=== PATIENT | female | born 1965 | race Caucasian/White ===

== ENCOUNTER 2023-12-16 07:50 | Emergency (ER) | payer MEDICARE, SELFPAY ==
[2023-12-16] VITALS (11 sets, daily range): BP systolic 147; BP diastolic 95; PULSE 81; RESP 16; TEMP 36.5; O2SAT 97–99; BMI 33.2
--- NOTE | 2023-12-16 08:03 | CTR_ITS ---
PROCEDURE INFORMATION: Exam: CT Abdomen And Pelvis With Contrast Exam date and time: 12/16/2023 8:30 AM Age: 58 years old Clinical indication: Abdominal pain; Localized; Upper; Additional info: Abd pain TECHNIQUE: Imaging protocol: Computed tomography of the abdomen and pelvis with contrast. Radiation optimization: All CT scans at this facility use at least one of these dose optimization techniques: automated exposure control; mA and/or kV adjustment per patient size (includes targeted exams where dose is matched to clinical indication); or iterative reconstruction. Contrast material: OMNI 350; Contrast volume: 100 ml; Contrast route: INTRAVENOUS (IV); COMPARISON: No relevant prior studies available. RADIATION DOSE METRICS: Total DLP (mGy-cm): 994.33 FINDINGS: Lungs: There is atelectasis and/or infiltrate in the left lower lobe and mild atelectasis in the right lower lobe. Diaphragm: There is a small hiatal hernia. Liver: Normal. No mass. Gallbladder and bile ducts: Normal. No calcified stones. No ductal dilation. Pancreas: Normal. No ductal dilation. The inflammatory process described below involving the duodenum is adjacent to the pancreas but I do not believe that the inflammatory process is centered in the pancreas. Spleen: There are splenic granulomata present. The spleen is otherwise unremarkable. Adrenal glands: Normal. No mass. Kidneys and ureters: Normal. No hydronephrosis. Stomach and bowel: There is definite wall thickening and edema involving the 2nd and 3rd portions of the duodenum. There is adjacent stranding extending into the mesentery and there is mesenteric adenopathy. Findings suggest an inflammatory process such as duodenitis/enteritis. Neoplasm can not completely be excluded here and follow-up is recommended to ensure complete resolution. There is no wall thickening involving the stomach and there is no wall thickening involving other small or large bowel loops. There is colonic diverticulosis without CT evidence for active diverticulitis Appendix: The appendix is normal. Intraperitoneal space: See above.. No free air. No significant fluid collection. Vasculature: Unremarkable. No abdominal aortic aneurysm. Lymph nodes: There are calcified mediastinal and hilar lymph nodes. There are calcified granulomata in the left lung base. There is a noncalcified nodule in the right lower lobe measuring 5 mm on series 3, image 9. There are 2 additional 2-3 mm nodules in the right middle lobe that are not clearly calcified seen on images 9 and 10 and another seen in the right lower lobe on image 21 and yet another on image 25 Urinary bladder: The bladder is unremarkable. Reproductive: Patient has undergone previous tubal ligation. Uterus and adnexa are otherwise unremarkable. Bones/joints: There are degenerative changes in the symphysis, hips, sacroiliac joints and spine Soft tissues: There is a small umbilical hernia containing only fat. CT/CT abdomen pelvis w con* [id number] IMPRESSION: 1. Definite wall thickening/edema involving the 2nd and 3rd portions of the duodenum with fat stranding extending into the mesentery and mesenteric adenopathy. Findings suggest an inflammatory process such as duodenitis or focal enteritis. Neoplasm can not be excluded and follow-up to ensure complete resolution is recommended. There is no free air or organized abscess. This process is adjacent to and may secondarily involve the pancreas but I do not believe it originated in the pancreas. 2. Normal appendix 3. Colonic diverticulosis without CT evidence for active diverticulitis 4. Evidence for prior granulomatous disease. Noncalcified pulmonary nodules as described above. Recommend formal chest CT to determine if there are additional nodules and serve as baseline for follow-up per Fleischner society.
--- NOTE | 2023-12-16 08:04 | W.ED.ABDPA2 ---
HPI - Abdominal Pain General: Chief Complaint: Abdominal Pain Stated Complaint: abd pain, N Time Seen by Provider: 12/16/23 07:53 Source: patient Mode of arrival: ambulatory Limitations: no limitations History of Present Illness: 58-year-old female who states that since Sunday she has been having some diffuse abdominal pain really mid abdomen and epigastric. States seems to be worse with eating and drinking rates the pain a 3 out of 10 currently states she feels like she needs to burp she has had nausea she denies any vomiting. She denies diarrhea denies any fever. Associated Symptoms: Denies chills, diarrhea, fever(s), nausea and vomiting Review of Systems Const: Denies: fever(s), chills, body aches or change in appetite ENMT: Denies: throat pain or dental pain Card: Denies: chest pain Resp: Denies: dyspnea GI: Reports: abdominal pain; Denies: nausea, vomiting or diarrhea Musc: Denies: neck pain or back pain Skin/Breast: Denies: rash Neuro: Denies: headache(s) Physical Exam Const: COMMON NORMALS: no acute distress, patient oriented x3 and healthy appearing HENMT: COMMON NORMALS: normocephalic and atraumatic HEAD & SCALP: normocephalic and atraumatic Neck/C-Spine: COMMON NORMALS: full ROM and supple Chest: COMMONS NORMALS: normal inspection of the chest Resp: COMMON NORMALS: normal respiratory effort, No retractions, No use of accessory muscles and clear to auscultation bilaterally AUSCULTATION: clear to auscultation bilaterally Cardio: COMMON NORMALS: regular rate, regular rhythm and No murmurs present (Cardio) RATE: regular rate RHYTHM: regular rhythm GI: COMMON NORMALS: Normal to inspection, nondistended, normoactive bowel sounds present, Soft to palpation and no masses PALPATION: Yes Soft to palpation OTHER: mild epigastric tenderness Extremity: COMMON NORMALS: normal to inspection and full ROM Neuro: COMMON NORMALS: patient oriented x3, moves all extremities and no focal motor deficits Psych: COMMON NORMALS: mental status grossly normal, Normal thought process present and cooperative THOUGHT PROCESS: Normal thought process present Skin: COMMON NORMALS: no rashes or lesions noted and no wounds GENERAL SKIN EXAM: no rashes or lesions noted Course Vital Signs: Vital signs: Vital Signs Temperature 97.7 F 12/16/23 08:00 Pulse Rate 81 12/16/23 08:00 Respiratory Rate 16 12/16/23 08:00 Blood Pressure 147/95 12/16/23 08:00 Pulse Oximetry 97 12/16/23 08:00 Oxygen Delivery Me thod Room Air 12/16/23 08:00 MDM - Abdominal Pain Medical Decision Making Patient presents with epigastric abdominal pain CT does show an enteritis or duodenitis we will start her on clarithromycin and Flagyl along with sulcal fate and Protonix. Will get her follow-up with surgeon she likely needs an endoscope. Abdominal exam here is benign she is to return if worsening she understands agrees to plan. Medical Records I reviewed the patient's medical records. Lab Data I reviewed the patient's lab results. 12/16/23 08:09 12/16/23 08:09 Labs/Radiology: Radiology Impressions Abdomen/Pelvis CT 12/16/23 08:03 IMPRESSION: 1. Definite wall thickening/edema involving the 2nd and 3rd portions of the duodenum with fat stranding extending into the mesentery and mesenteric adenopathy. Findings suggest an inflammatory process such as duodenitis or focal enteritis. Neoplasm can not be excluded and follow-up to ensure complete resolution is recommended. There is no free air or organized abscess. This process is adjacent to and may secondarily involve the pancreas but I do not believe it originated in the pancreas. 2. Normal appendix 3. Colonic diverticulosis without CT evidence for active diverticulitis 4. Evidence for prior granulomatous disease. Noncalcified pulmonary nodules as described above. Recommend formal chest CT to determine if there are additional nodules and serve as baseline for follow-up per Fleischner society. Laboratory Results WBC 11.84 10^3/uL (3.29-11.43) H 12/16/23 08:09 RBC 4.76 10^6/uL (3.85-5.65) 12/16/23 08:09 Hgb 13.20 g/dL (11.27-16.99) 12/16/23 08:09 Hct 39.6 % (36-47) 12/16/23 08:09 MCV 83.2 fl (85-98) L 12/16/23 08:09 MCH 27.7 pg (27-33) 12/16/23 08:09 MCHC 33.3 g/dL (30-55) 12/16/23 08:09 RDW 13.6 % (12.1-15.1) 12/16/23 08:09 Plt Count 319 10^3/cmm (157-399) 12/16/23 08:09 MPV 9.7 fL (7.4-10.4) 12/16/23 08:09 Neut % (Auto) 61.6 % 12/16/23 08:09 Lymph % (Auto) 28.0 % 12/16/23 08:09 Davidson % (Auto) 7.9 % 12/16/23 08:09 Eos % (Auto) 1.4 % 12/16/23 08:09 Baso % (Auto) 0.8 % 12/16/23 08:09 Neut # (Auto) 7.28 10^3/uL (1.8-7.7) 12/16/23 08:09 Lymph # (Auto) 3.3 10^3/uL (0.8-4.8) 12/16/23 08:09 Davidson # (Auto) 0.9 10^3/uL (0.2-0.9) 12/16/23 08:09 Eos # (Auto) 0.2 10^3/uL (0.0-0.8) 12/16/23 08:09 Baso # (Auto) 0.1 10^3/uL (0.0-0.1) 12/16/23 08:09 Nucleated RBC % (auto) 0 % 12/16/23 08:09 Nucleated RBCs # 0.0 /100WBC 12/16/23 08:09 Sodium 139 mmol/L (136-145) 12/16/23 08:09 Potassium 4.1 mmol/L (3.5-5.1) 12/16/23 08:09 Chloride 102 mmol/L (98-107) 12/16/23 08:09 Carbon Dioxide 25 mmol/L (22-29) 12/16/23 08:09 Anion Gap 16.1 (5-19) 12/16/23 08:09 BUN 11 mg/dL (6-20) 12/16/23 08:09 Creatinine 0.9 mg/dL (0.5-0.9) 12/16/23 08:09 GFR Calculation 64.1 mL/min (90-130) L 12/16/23 08:09 Glucose 132 mg/dL (65-115) H 12/16/23 08:09 Calculated Osmolality 289 mOsm/kg (285-295) 12/16/23 08:09 Calcium 9.4 mg/dL (8.5-10.5) 12/16/23 08:09 Total Bilirubin 0.3 mg/dL (0.15-1.2) 12/16/23 08:09 AST 13 U/L (0-32) 12/16/23 08:09 ALT 10 U/L (0-33) 12/16/23 08:09 Alkaline Phosphatase 76 U/L (35-105) 12/16/23 08:09 Total Protein 8.0 g/dL (6.6-8.7) 12/16/23 08:09 Albumin 3.9 g/dL (3.5-5.2) 12/16/23 08:09 Globulin 4.1 g/dL (1.3-4.6) 12/16/23 08:09 Lipase 39 U/L (13-60) 12/16/23 08:09 All radiology interpretation(s) finalized by discharge Discharge Plan Discharge Patient Disposition: Home Clinical Impression: Abdominal pain, Duodenitis Condition: Stable Prescriptions: New pantoprazole [Protonix] 40 mg tablet,delayed release (DR/EC) 40 mg PO BID Qty: 60 0RF sucralfate 1 gram tablet 1 g PO BID 84 Days Qty: 168 0RF clarithromycin 500 mg tablet 500 mg PO BID 7 Days Qty: 14 0RF metronidazole 500 mg tablet 500 mg PO Q8H 7 Days Qty: 21 0RF Discharge Orders: Discharge ED (Routine); Ordered 12/16/23 Ordered By: Monique Gu Referrals: Iván Pierce MD [Physician] - 1-3 days Discharge Diet: Advance as tolerated Discharge Activity: Resume usual activity Patient Instructions: Abdominal Pain (ED), Duodenitis (ED) Coding Level of Care Code ED [employer] Teacher for Isidoro Pierre
[2023-12-16] MEDS: sodium chloride 0.9% 1,000 ML 999 ML IV (08:12)
[2023-12-16 08:13] LABS: Basophils # 0.1 10^3/uL (0.0-0.1); Basophils % 0.8 %; Eosinophils # 0.2 10^3/uL (0.0-0.8); Eosinophils % 1.4 %; Hematocrit 39.6 % (36-47); Lymphocytes # 3.3 10^3/uL (0.8-4.8); Mean Corpuscular HGB Conc 33.3 g/dL (30-55); Mean Corpuscular Hemoglobin 27.7 pg (27-33); Mean Corpuscular Volume 83.2 fl (85-98); Mean Platelet Volume 9.7 fL (7.4-10.4); Monocytes # 0.9 10^3/uL (0.2-0.9); Monocytes % 7.9 %; Neutrophils # 7.28 10^3/uL (1.8-7.7); Neutrophils % 61.6 %; Nucleated Red Blood Cells % 0 %; Platelet Count 319 10^3/cmm (157-399); Red Blood Count 4.76 10^6/uL (3.85-5.65); Red Cell Distribution Width 13.6 % (12.1-15.1); White Blood Count 11.84 10^3/uL (3.29-11.43)
[2023-12-16] MEDS: ondansetron 2 mg/ML SDV 2 mL 4 MG IVP (08:13)
[2023-12-16] MEDS: lidocaine 2% viscous 15 ML, aluminum-mag hydrox-simethicon 30 ML, sucralfate oral liq 1 GM PO (08:17)
[2023-12-16 08:30] LABS: Alanine Aminotransferase 10 U/L (0-33); Albumin Level 3.9 g/dL (3.5-5.2); Alkaline Phosphatase 76 U/L (35-105); Anion Gap 16.1 (5-19); Aspartate Amino Transferase 13 U/L (0-32); Blood Urea Nitrogen 11 mg/dL (6-20); Calcium 9.4 mg/dL (8.5-10.5); Carbon Dioxide 25 mmol/L (22-29); Chloride 102 mmol/L (98-107); Globulin 4.1 g/dL (1.3-4.6); Glomerular Filtration Rate 64.1 mL/min (90-130); Glucose 132 mg/dL (65-115); Lipase 39 U/L (13-60); Osmolality Calculated 289 mOsm/kg (285-295); Potassium 4.1 mmol/L (3.5-5.1); Sodium 139 mmol/L (136-145); Total Bilirubin 0.3 mg/dL (0.15-1.2)
[2023-12-16] MEDS: iohexol 350 mg/mL 500 mL Btl (per mL) IV (08:40)
--- NOTE | 2023-12-17 08:18 | DCPLANNER ---
Message was sent to general surgery on 12/17/23 at 0818. Clinic to contact patient.
== END 2023-12-16 09:26 | disposition home or self-care (01) ==
PROVIDERS: Emergency Provider Emergency Medicine
DX: K29.80 Duodenitis without bleeding (principal)
CPT/HCPCS: 74177; 80053; 83690; 85025; 96374; 99285; J2405; J7030; Q9967

== ENCOUNTER 2023-12-21 10:28 | Emergency (ER) | payer MEDICARE, SELFPAY ==
[2023-12-21 10:52] VITALS: BP 115/80; PULSE 82; RESP 14; TEMP 36.8; O2SAT 97
[2023-12-21 11:13] VITALS: BP 141/99; PULSE 80; RESP 18; TEMP 36.8; O2SAT 100
--- NOTE | 2023-12-21 11:13 | ECG_ITS ---
[facility] Test Date: 2023-12-21 Pat Name: Bel De Jesus Department: Room: Gender: Female Participant Administrator: : 1965 Requested By: Gela Pierce Order Number: [id number] Edwards MD: Thuan Powell M.D. Measurements Intervals [place] Rate: 72 P: 64 NC: 163 QRS: 50 QRSD: 86 T: 50 QT: 386 QTc: 422 Interpretive Statements SINUS RHYTHM No previous ECG available for comparison Electronically Signed On 12-22-2023 5:58:01 SIGNAL WORKER by Thuan Powell M.D. [id number]
--- NOTE | 2023-12-21 11:14 | ED_ITS ---
HPI - Allergic Reaction 2 General: Chief complaint: Allergic Reaction Stated complaint: Right & left leg pain Time Seen by Provider: 12/21/23 11:10 History of Present Illness: HPI narrative: 58-year-old female who presents to the e [facility] room with a rash on her legs and pedal edema. She was seen here 3 to 4 days back and had a CT of her abdomen done which showed some duodenitis. She had been having abdominal pain. She was started on omeprazole, clarithromycin, Flagyl and Carafate. She is concerned she may be having a reaction to this. Abdominal pain has been improved. No shortness of breath. No feeling of her throat closing. No chest pain. No nausea or vomiting. Review of Systems 2 Narrative: Constitutional symptoms: Negative except as documented in HPI. Skin symptoms: Negative except as documented in HPI. Eye symptoms: Negative except as documented in HPI. ENMT symptoms: Negative except as documented in HPI. Respiratory symptoms: Negative except as documented in HPI. Cardiovascular symptoms: Negative except as documented in HPI. Gastrointestinal symptoms: Negative except as documented in HPI. Genitourinary symptoms: Negative except as documented in HPI. Musculoskeletal symptoms: Negative except as documented in HPI. Neurologic symptoms: Negative except as documented in HPI. Psychiatric symptoms: Negative except as documented in HPI. Endocrine symptoms: Negative except as documented in HPI. Physical Exam 2 Narrative: EXAM NARRATIVE: General: Alert, no acute distress. Skin: Warm, dry. Rash on legs. 1 to 1.5 cm round lesions. Raised. Erythematous. Head: Normocephalic, atraumatic. Neck: Supple, trachea midline. Eye: Extraocular movements are intact. Ears, nose, mouth and throat: mucosa moist. Cardiovascular: Regular, Normal peripheral perfusion. Patient does have some pedal edema. Respiratory: Lungs are clear to auscultation, respirations are non-labored, breath sounds are equal, Symmetrical chest wall expansion. Gastrointestinal: Soft, Nontender, Non distended, Normal bowel sounds. Musculoskeletal: Normal ROM, no deformity. Neurological: Alert and oriented to person, place, time, and situation, No focal neurological deficit observed. Psychiatric: Cooperative, appropriate mood & affect. Course 2 Vital Signs: Vital signs: Vital Signs Temperature 98.2 F 12/21/23 11:13 Pulse Rate 80 12/21/23 11:13 Respiratory Rate 18 12/21/23 11:13 Blood Pressure 141/99 12/21/23 11:13 Pulse Oximetry 100 12/21/23 11:13 Oxygen Delivery Me thod Room Air 12/21/23 11:13 MDM - Allergic Reaction Medical Decision Making Medical decision making: Differential diagnosis including but not limited to: This could be just an allergic reaction to one of her medications. However will rule out heart failure with troponin and a proBNP. And a chest x-ray. Urinalysis to rule out nephrotic syndrome which might cause edema and a rash. Basic lab work. Chest x-ray: No acute process. No pneumothorax. No infiltrate. No cardiomegaly. This was reviewed and interpreted by myself the ER physician. EKG: Time 11:37 AM rate 72 normal sinus rhythm, No ST-T changes, no ectopy, normal SC & QRS intervals, This was reviewed and interpreted by myself the ER physician. Lab work is unremarkable. No leukocytosis. No renal failure. Urinalysis is normal. Lab Data 12/21/23 11:45 12/21/23 11:45 Laboratory Results WBC 9.06 10^3/uL (3.29-11.43) 12/21/23 11:45 RBC 4.21 10^6/uL (3.85-5.65) 12/21/23 11:45 Hgb 11.50 g/dL (11.27-16.99) 12/21/23 11:45 Hct 36.4 % (36-47) 12/21/23 11:45 MCV 86.5 fl (85-98) 12/21/23 11:45 MCH 27.3 pg (27-33) 12/21/23 11:45 MCHC 31.6 g/dL (30-55) 12/21/23 11:45 RDW 14.1 % (12.1-15.1) 12/21/23 11:45 Plt Count 350 10^3/cmm (157-399) 12/21/23 11:45 MPV 9.4 fL (7.4-10.4) 12/21/23 11:45 Neut % (Auto) 55.9 % 12/21/23 11:45 Lymph % (Auto) 33.2 % 12/21/23 11:45 Martin % (Auto) 7.7 % 12/21/23 11:45 Eos % (Auto) 2.0 % 12/21/23 11:45 Baso % (Auto) 0.9 % 12/21/23 11:45 Neut # (Auto) 5.06 10^3/uL (1.8-7.7) 12/21/23 11:45 Lymph # (Auto) 3.0 10^3/uL (0.8-4.8) 12/21/23 11:45 Martin # (Auto) 0.7 10^3/uL (0.2-0.9) 12/21/23 11:45 Eos # (Auto) 0.2 10^3/uL (0.0-0.8) 12/21/23 11:45 Baso # (Auto) 0.1 10^3/uL (0.0-0.1) 12/21/23 11:45 Nucleated RBC % (auto) 0 % 12/21/23 11:45 Nucleated RBCs # 0.0 /100WBC 12/21/23 11:45 Sodium 140 mmol/L (136-145) 12/21/23 11:45 Potassium 3.8 mmol/L (3.5-5.1) 12/21/23 11:45 Chloride 103 mmol/L (98-107) 12/21/23 11:45 Carbon Dioxide 26 mmol/L (22-29) 12/21/23 11:45 Anion Gap 14.8 (5-19) 12/21/23 11:45 BUN 15 mg/dL (6-20) 12/21/23 11:45 Creatinine 0.9 mg/dL (0.5-0.9) 12/21/23 11:45 GFR Calculation 64.1 mL/min (90-130) L 12/21/23 11:45 Glucose 94 mg/dL (65-115) 12/21/23 11:45 Calculated Osmolality 291 mOsm/kg (285-295) 12/21/23 11:45 Calcium 8.6 mg/dL (8.5-10.5) 12/21/23 11:45 Total Bilirubin 0.2 mg/dL (0.15-1.2) 12/21/23 11:45 AST 23 U/L (0-32) 12/21/23 11:45 ALT 17 U/L (0-33) 12/21/23 11:45 Alkaline Phosphatase 73 U/L (35-105) 12/21/23 11:45 Troponin T Baseline < 6 ng/L (0-10) 12/21/23 11:45 C-Reactive Protein 12.3 mg/L (0.0-4.9) H 12/21/23 11:45 NT-Pro-B Natriuret Pep 322 pg/mL (0-125) H 12/21/23 11:45 Total Protein 6.8 g/dL (6.6-8.7) 12/21/23 11:45 Albumin 3.7 g/dL (3.5-5.2) 12/21/23 11:45 Globulin 3.1 g/dL (1.3-4.6) 12/21/23 11:45 Urine Color Yellow (Yellow) 12/21/23 13:16 Urine Appearance Clear (CLEAR) 12/21/23 13:16 Urine pH 5 (5-7) 12/21/23 13:16 Ur Specific Stover 1.010 (1.005-1.030) 12/21/23 13:16 Urine Protein Neg (Negative) 12/21/23 13:16 Urine Glucose (UA) Norm (Normal) 12/21/23 13:16 Urine Ketones Negative (Negative) 12/21/23 13:16 Urine Blood 2+ (Negative) H 12/21/23 13:16 Urine Nitrate Negative (Negative) 12/21/23 13:16 Urine Bilirubin Neg (Negative) 12/21/23 13:16 Urine Urobilinogen Norm mg/dL (Negative) 12/21/23 13:16 Ur Leukocyte Esterase Trace (Negative) H 12/21/23 13:16 Urine RBC 5-10 /hpf (0-2) H 12/21/23 13:16 Urine WBC 0-4 /hpf (0-5) H 12/21/23 13:16 Ur Squamous Epith Cells 0-4 /hpf (0-5) H 12/21/23 13:16 Ur Transition Epith Cell 0-4 /hpf 12/21/23 13:16 Amorphous Sediment Not Reportable 12/21/23 13:16 Urine Bacteria Trace /hpf (NONE) 12/21/23 13:16 Coronavirus 229E (PCR) Not detected (NOT DETECT) 12/21/23 11:38 Influenza Type A Ag negative (Negative) 12/21/23 11:38 Influenza Type B Ag negative (Negative) 12/21/23 11:38 SARS-CoV-2 (PCR) Not detected (NOT DETECT) 12/21/23 11:38 All radiology interpretation(s) finalized by discharge Discharge Plan Discharge Patient Disposition: Home Clinical Impression: Urticaria Condition: Stable Prescriptions: New prednisone 20 mg tablet 60 mg PO DAILY 5 Days Qty: 15 0RF amoxicillin-pot clavulanate 875-125 mg tablet 1 tab PO BID 10 Days Qty: 20 0RF No Action simvastatin 40 mg tablet 40 mg PO QPM levothyroxine 88 mcg tablet 88 mcg PO DAILY montelukast 10 mg tablet 10 mg PO QPM NAC 600 mg Capsule 600 mg PO DAILY pantoprazole [Protonix] 40 mg tablet,delayed release (DR/EC) 40 mg PO BID Qty: 60 0RF sucralfate 1 gram tablet 1 g PO BID 84 Days Qty: 168 0RF clarithromycin 500 mg tablet 500 mg PO BID 7 Days Qty: 14 0RF metronidazole 500 mg tablet 500 mg PO Q8H 7 Days Qty: 21 0RF Discharge Orders: Discharge ED (Routine); Ordered 12/21/23 Ordered By: Gela Simmons Referrals: Lana Botello PA-C [Primary Care Provider] - (Discontinue clarithromycin and metronidazole. Continue Carafate and PPI. You have been screened and evaluated and felt safe for discharge. Health conditions do change or evolve sometimes and as such it is important that you follow up with your Primary Doctor to be re checked, 3-5 days is a general good time frame for follow up. You are always welcome to return to the ED for re assessment if your symptoms are worsening or you have new concerns) Discharge Diet: Advance as tolerated Discharge Activity: Resume usual activity Patient Instructions: Opioid Safety, Pain Management, Allergic Reaction Coding Level of Care Code ED Director Operations for Isidoro Pierre
--- NOTE | 2023-12-21 11:20 | XR_ITS ---
WS: [id number] XR chest 1V [id number] REASON FOR EXAM: edema FINDINGS: The heart and the mediastinum are within normal limits. Calcified granulomatous disease in both hemithoraces. No acute or subacute pulmonary parenchymal or pleural abnormality is identified. Eventration of the right hemidiaphragm. Mild degenerative spondylosis and scoliosis of the mid and lower thoracic spine. IMPRESSION: No acute chest abnormality.
[2023-12-21 11:54] LABS: Basophils # 0.1 10^3/uL (0.0-0.1); Basophils % 0.9 %; Eosinophils # 0.2 10^3/uL (0.0-0.8); Hematocrit 36.4 % (36-47); Lymphocytes % 33.2 %; Mean Corpuscular HGB Conc 31.6 g/dL (30-55); Mean Corpuscular Hemoglobin 27.3 pg (27-33); Mean Corpuscular Volume 86.5 fl (85-98); Mean Platelet Volume 9.4 fL (7.4-10.4); Monocytes # 0.7 10^3/uL (0.2-0.9); Monocytes % 7.7 %; Neutrophils # 5.06 10^3/uL (1.8-7.7); Neutrophils % 55.9 %; Nucleated Red Blood Cells % 0 %; Platelet Count 350 10^3/cmm (157-399); Red Blood Count 4.21 10^6/uL (3.85-5.65); Red Cell Distribution Width 14.1 % (12.1-15.1); White Blood Count 9.06 10^3/uL (3.29-11.43)
[2023-12-21 12:02] LABS: Influenza A by IFA negative (Negative); Influenza B by IFA negative (Negative)
[2023-12-21 12:14] LABS: Troponin(5th) Baseline < 6 ng/L (0-10)
[2023-12-21 12:25] LABS: Alanine Aminotransferase 17 U/L (0-33); Albumin Level 3.7 g/dL (3.5-5.2); Alkaline Phosphatase 73 U/L (35-105); Anion Gap 14.8 (5-19); Aspartate Amino Transferase 23 U/L (0-32); Blood Urea Nitrogen 15 mg/dL (6-20); C Reactive Protein 12.3 mg/L (0.0-4.9); Calcium 8.6 mg/dL (8.5-10.5); Carbon Dioxide 26 mmol/L (22-29); Chloride 103 mmol/L (98-107); Globulin 3.1 g/dL (1.3-4.6); Glomerular Filtration Rate 64.1 mL/min (90-130); Glucose 94 mg/dL (65-115); NT Pro B Type Natriuretic Pept 322 pg/mL (0-125); Osmolality Calculated 291 mOsm/kg (285-295); Potassium 3.8 mmol/L (3.5-5.1); Sodium 140 mmol/L (136-145); Total Bilirubin 0.2 mg/dL (0.15-1.2); Total Protein 6.8 g/dL (6.6-8.7)
[2023-12-21 13:29] LABS: Adenovirus Not Detected (NOT DETECT); Chlamydia Pneumoniae Not Detected (NOT DETECT); Coronavirus 229E,HKU1,NL63,OC4 Not Detected (NOT DETECT); Human Metapneumovirus Not Detected (NOT DETECT); Human Rhinovirus/Enterovirus Not Detected (NOT DETECT); Influenza A Not Detected (NOT DETECT); Influenza A H1 Not Detected (NOT DETECT); Influenza A H1-2009 Not Detected (NOT DETECT); Influenza A H3 Not Detected (NOT DETECT); Influenza B Not Detected (NOT DETECT); Mycoplasma Pneumoniae Not Detected (NOT DETECT); Parainfluenza Virus Type 1 Not Detected (NOT DETECT); Parainfluenza Virus Type 2 Not Detected (NOT DETECT); Parainfluenza Virus Type 3 Not Detected (NOT DETECT); Parainfluenza Virus Type 4 Not Detected (NOT DETECT); Respiratory Syncytial Virus A Not Detected (NOT DETECT); Respiratory Syncytial Virus B Not Detected (NOT DETECT); SARS-COV-2 Not Detected (NOT DETECT)
[2023-12-21 14:05] LABS: Add Urine Culture? No; Bacteria Urine TRACE /hpf; Bilirubin Urine Neg (Negative); Blood Urine 2+ (Negative); Glucose Urine UA Norm (Normal); Ketones Urine Negative (Negative); Leukocyte Esterase Urine Trace (Negative); Nitrate Urine Negative (Negative); Protein Urine Neg (Negative); Squamous Epithelial Cell Urine 0-4 /hpf (0-5); Transitional Epi Cells Urine 0-4 /hpf; Urine Appearance Clear (CLEAR); Urine Color Yellow (Yellow); Urobilinogen Urine Norm (Negative); WBC Urine 0-4 /hpf (0-5); pH Urine 5 (5-7)
== END 2023-12-21 14:41 | disposition home or self-care (01) ==
PROVIDERS: Emergency Provider Emergency Medicine; PCP Physician Assistant
DX: L50.9 Urticaria, unspecified (principal); Z11.52 Encounter for screening for COVID-19
CPT/HCPCS: 36415; 71045; 80053; 81001; 83880; 84484; 85025; 86140; 87635; 87804; 93005; 99285

== ENCOUNTER → 2024-01-03 11:57 | Outpatient (BNVA) | payer MEDICARE, SELFPAY | PROVIDERS: PCP Physician Assistant; Referring Provider Surgery; Visit Provider Surgery | DX: R10.9 Unspecified abdominal pain (principal) | CPT/HCPCS: 83630 ==

== ENCOUNTER 2024-01-04 10:48 | Outpatient (CLI) | payer MEDICARE, SELFPAY ==
--- NOTE | 2024-01-04 10:50 | MM_ITS ---
WS: [id number] BILATERAL 3D TOMOSYNTHESIS DIGITAL SCREENING MAMMOGRAM WITH CAD CLINICAL INFORMATION: SCREENING HISTORY: Screening mammogram. No current complaints. COMPARISON: None. TECHNIQUE: Bilateral CC and MLO views. FINDINGS: Fatty-replaced breasts bilaterally. No suspicious focal mass, asymmetry, calcifications, or ibm bpm architect ural distortion. No evidence of malignancy. IMPRESSION: MM/[place] [id number] BI-RADS: 1-Negative FOLLOW UP: 1 Year Follow-up Recommend return to annual screening mammography.
== END 2024-01-04 10:49 | disposition home or self-care (01) ==
LOC: RAD 10:49
PROVIDERS: PCP Physician Assistant; Visit Provider Physician Assistant
DX: Z12.39 Encounter for other screening for malignant neoplasm of breast (principal); R92.313 Mammographic fatty tissue density, bilateral breasts
CPT/HCPCS: 77063; 77067; 99204

== ENCOUNTER 2024-01-30 08:28 | Day surgery (SDC) | payer MEDICARE, SELFPAY ==
--- NOTE | 2024-01-30 08:48 | W.PM.OPSFHP ---
Same Day Surgery H&P Indication for Procedure/HPI DATE OF PROCEDURE: January 30, 2024 CHIEF COMPLAINT/INDICATIONFOR SURGICAL PROCEDURE: history of duodenitis PREOP DIAGNOSIS: history of duodenitis PLANNED PROCEDURE: Operation Date: 01/30/24 09:25 Proposed Procedures p 34982 egd : K29.80(Not Applicable) - Iván Pierce MD Medications/Allergies* Home Medications Medication Instructions Recorded Confirmed Type acetylcysteine 600 mg capsule (NAC) 600 mg PO DAILY 12/21/23 01/28/24 History levothyroxine 88 mcg tablet 88 mcg PO DAILY 12/21/23 01/28/24 History montelukast 10 mg tablet 10 mg PO QPM 12/21/23 01/28/24 History simvastatin 40 mg tablet 40 mg PO QPM 12/21/23 01/28/24 History budesonide-formoterol HFA 80 2 puff inhalation BID 01/28/24 01/28/24 History mcg-4.5 mcg/actuation aerosol inhaler (Symbicort) Allergies/Adverse Reactions Allergy/AdvReac Type Severity Reaction Status Date / Time clarithromycin Allergy ALGY-Rash Verified 01/28/24 09:26 metronidazole Allergy ALGY-Rash Verified 01/28/24 09:26 Pertinent Exam Findings alert, oriented x 3, clear to auscultation bilaterally and regular rate & rhythm Recommendations Surgery/Procedure today Coding Level of Care Code Acute Code for Chg Fwd
[2024-01-30 08:55] VITALS: BP 130/87; PULSE 77; RESP 18; TEMP 36.3; O2SAT 99; BMI 33.2
[2024-01-30] MEDS: sodium chloride 0.9% 1,000 ML 30 ML IV (08:57)
--- NOTE | 2024-01-30 09:29 | ANES.PREANE2 ---
Pre-Anesthetic Assessment Height/Weight: Height 1.75 m Weight 102.058 kg Temp Pulse Resp BP Pulse Ox O2 Del Method 97.3 F L 77 18 130/87 99 Room Air 01/30/24 08:55 01/30/24 08:55 01/30/24 08:55 01/30/24 08:55 01/30/24 08:55 01/30/24 08:55 Preop Diagnosis: history of duodenitis Operation Date: 01/30/24 09:25 Proposed Procedures p [id number] egd : K29.80(Not Applicable) - Iván Pierce MD Familial anesthetic complications: none Was Beta Williams taken within 24 hours: N/A Was Clonidine taken within 24 hours: N/A Last intake: Intake Last Liquid Date 01/29/24 Last Liquid Time 23:45 Last Solid Date 01/29/24 Last Solid Time 19:00 Social Alcohol (history) and No alcohol marijuana 01/29/24 Exam alert, oriented x 3, clear to auscultation bilaterally and regular rate & rhythm Airway Submandibular: within normal limits Cervical ROM: within normal limits Mallampati: Class II Dentition: false History/ROS Other Pulmonary Chronic Obstructive Pulmonary Disease and None reported CV/HEM None reported None reported Hepatic None reported GI Gastroesophageal Reflux Disease (history ) Metabolic Hyperlipidemia and Thyroid Disease Musc/skel None reported Neuropsych None reported Anesthetic Plan ASA status: 2 Anesthesia: MAC Risk of > 500 ml blood loss (7ml/kg in children): No Medications/Allergies Home Medications Medication Instructions Recorded Confirmed Last Taken Type sucralfate 1 gram tablet 1 g PO BID 12 weeks #168 tabs 12/16/23 01/28/24 01/28/24 Rx acetylcysteine 600 mg capsule (NAC) 600 mg PO DAILY 12/21/23 01/28/24 01/28/24 History levothyroxine 88 mcg tablet 88 mcg PO DAILY 12/21/23 01/28/24 01/28/24 History montelukast 10 mg tablet 10 mg PO QPM 12/21/23 01/28/24 01/28/24 History simvastatin 40 mg tablet 40 mg PO QPM 12/21/23 01/28/24 01/28/24 History budesonide-formoterol HFA 80 2 puff inhalation BID 01/28/24 01/28/24 01/28/24 History mcg-4.5 mcg/actuation aerosol inhaler (Symbicort) Allergies Allergy/AdvReac Type Severity Reaction Status Date / Time clarithromycin Allergy ALGY-Rash Verified 01/28/24 09:26 metronidazole Allergy ALGY-Rash Verified 01/28/24 09:26 Current Medications Generic Name Dose Route Start Last Admin Trade Name Freq PRN Reason Stop Dose Admin Sodium Chloride 1,000 mls @ 30 mls/hr 01/30/24 08:45 01/30/24 08:57 Sodium Chloride 0.9% IV 30 mls/hr .Q24H SONALI Administration Data Anesthesia Cardiac Studies: No Data to Display
[2024-01-30 09:52] VITALS: BP 107/72; PULSE 84; RESP 12; TEMP 36.3; O2SAT 96
[2024-01-30 10:05] VITALS: BP 86/71; PULSE 68; RESP 16; O2SAT 99
--- NOTE | 2024-01-30 10:20 | ANE.PACU2 ---
Inpatient post-anesthesia follow up: Airway intact: Yes Vital signs: Temperature 97.3 F Pulse Rate 68 Respiratory Rate 16 Blood Pressure 86/71 Pulse Oximetry 99 Oxygen Delivery Me thod Room Air Oxygen Flow Rate 2 Fraction of Inspir ed Oxygen Hydration adequate: Yes Nausea and vomiting: No Pain level: 1 Mental status: Baseline
== END 2024-01-30 10:22 | disposition home or self-care (01) ==
PROVIDERS: PCP Physician Assistant; Visit Provider Surgery
PROC: 0DJ08ZZ Inspection of Upper Intestinal Tract, Via Natural or Artificial Opening Endoscopic (ICD-10-PCS; CPT 43235; principal; 2024-01-30 09:25)
DX: K29.50 Unspecified chronic gastritis without bleeding (principal); K44.9 Diaphragmatic hernia without obstruction or gangrene; J44.9 Chronic obstructive pulmonary disease, unspecified; K21.9 Gastro-esophageal reflux disease without esophagitis; E78.5 Hyperlipidemia, unspecified
CPT/HCPCS: 43239; 88305; 88342; J2704; J7030

== ENCOUNTER → 2024-02-13 11:23 | Outpatient (BNVA) | payer MEDICARE, SELFPAY | PROVIDERS: PCP Physician Assistant; Visit Provider Surgery | DX: Z09 Encounter for follow-up examination after completed treatment for conditions other than malignant neoplasm (principal) | CPT/HCPCS: 99213 ==

== ENCOUNTER 2025-01-05 09:07 | Outpatient (CLI) | payer MEDICARE, SELFPAY ==
--- NOTE | 2025-01-05 09:11 | MM_ITS ---
WS: [id number] BILATERAL SCREENING DIGITAL TOMOSYNTHESIS MAMMOGRAM WITH CAD HISTORY: SCREENING COMPARISON: 01/04/2024 Bilateral CC and MLO views with tomosynthesis and synthetic mammography submitted. Computer aided detection analyzed. Breast composition: The breasts are almost entirely fatty. No suspicious masses, microcalcifications or architectural distortion. MM/MM scr BI tomosynthesis [id number] IMPRESSION: BI-RADS: 1 - Negative. FOLLOW UP: 1 Year Follow-up
== END 2025-01-05 09:08 | disposition home or self-care (01) ==
LOC: RAD 09:10
PROVIDERS: PCP Physician Assistant; Visit Provider Nurse Practitioner Family
DX: Z12.31 Encounter for screening mammogram for malignant neoplasm of breast (principal); R92.313 Mammographic fatty tissue density, bilateral breasts
CPT/HCPCS: 77063; 77067